=== PATIENT | male | born 1970 | race Caucasian/White ===

== ENCOUNTER 2018-08-14 05:24 | Observation (INO) ==
--- NOTE | 2018-08-05 15:00 | Anesthesiology Consultation ---
Date of Service August 05, 2018 Assessment & Plan (1) Encounter for pre-operative examination: Chart Review Chart Review: Acceptable Risk for Surgery and Patient seen in Pre Admission Testing Consults Requested none Teaching & Discussion Pre-Anesthesia Teaching/Discussion Notes: Instructed NPO after midnight before surgery, except medications with 15 cc of water. Medication instructions provided according to the PAT guidelines. History Surgery Operation Date: 08/14/18 07:15 Proposed Procedures p Bilateral Septoplasty, - Fatemeh Monroe MD s Endoscopic Sinus Surgery; - Fatemeh Monroe MD s Tonsillectomy - Fatemeh Monroe MD Height/Weight Height: 6 ft 2 in Weight: 92.8 kg Allergies Allergy/AdvReac Type Severity Reaction Status Date / Time No Known Allergies Allergy Unverified 07/30/18 15:23 Medications Home Medications Medication Instructions Recorded Confirmed Last Taken Allergy Shot 1 dose IM UD PRN 07/30/18 Unknown albuterol sulfate 1 puff INHALATION Q6H PRN 07/30/18 07/30/18 Unknown atorvastatin 40 mg PO QAM 07/30/18 07/30/18 Unknown budesonide-formoterol [Symbicort] 2 puff INHALATION BID 07/30/18 07/30/18 Unknown fluticasone [Flonase Allergy 1 spray INTRANASAL DAILY PRN 07/30/18 07/30/18 Unknown Relief] loratadine [Claritin] 10 mg PO DAILY PRN 07/30/18 07/30/18 Unknown omeprazole 40 mg PO QAM 07/30/18 07/30/18 Unknown tamsulosin 0.4 mg PO QAM 07/30/18 07/30/18 Unknown Past Medical History Medical History Asthma LOW GRADE--> ALLERGY AND ACTIVITY INDUCED. BPH (benign prostatic hyperplasia) Chronic back pain LUMBAR COMPRESSED VERTEBRAE GERD (gastroesophageal reflux disease) Hyperlipidemia Seasonal allergies Past Family History Family History Grandmother Family history of diabetes mellitus Past Surgical History Surgical History H/O thoracic outlet syndrome with rib removal History of appendectomy History of arthroscopy BILATERAL KNEE ARTHROSCOPY History of colonoscopy WITH POLYPECTOMY History of elbow surgery right elbow for bone spur History of endoscopic sinus surgery History of esophageal dilatation History of esophagogastroduodenoscopy (EGD) Past Anesthesia History No Hx of Anesthesia Complications and No Family Hx of Anesthesia Complications History of PONV Yes (After surgery for thoracic outlet syndrome.) Motion Sickness Screening History of Motion Sickness: No Social History Smoking Status: Never smoker Do You Dip or Chew Tobacco: No Hx Alcohol Use: Yes Alcohol type: beer alcohol intake frequency: a few times a month Hx Substance Use: No substance use type: does not use Exercise / Class Metabolic Activity 1 > 8 Run/Swim/Ski/Tennis (Normally runs 10-15 miles per week. Able to climb FOS. Denies CP or SOB (unless asthma acts up while running). ) Review of Systems Patient denies chest pain, shortness of breath, dyspnea on exertion, cough, palpitations. +joint pain (ankles) +acid reflux (controlled by medication and diet) +wheezing (rare due to asthma) Physical Exam Vital Signs BP: 125/76 P: 75 R: 14 T: 98.4 SPO2: 97% on RA ENMT Thyromental Distance: > or= 3.5 Finger Breadths (3.5) Mallampati Class: I Neck normal visual inspection and trachea midline; neck extension not limited Respiratory normal respiratory effort Auscultation: lungs clear to auscultation bilaterally Cardiovascular Rate/Rhythm: regular rate and regular rhythm Heart Sounds: no murmur Vessels: no carotid bruit Neurologic moves all extremities Psychiatric Orientation: alert and oriented x 3 Testing Stress Test Date: 11/05/17 Type: exercise Findings: + WNL The treadmill exercise test was normal. There was normal exercise HR and BP response without symptoms or EKG evidence of ischemia. He attained 91% MPHR and 11 MET workload. Good functional capacity. The stress EKG response was normal with upsloping ST segment depression noted at peak stress, normalizing by 1 minute in recovery. Laboratory Results 08/05/18 15:31
--- NOTE | 2018-08-05 15:02 | PAT Medication Instructions ---
Medication Instructions Date of Service August 05, 2018 Home Medications Allergy Shot 1 dose IM Q3-4 weeks albuterol sulfate 1 puff INHALATION Q6H NEEDED atorvastatin 40 mg PO QAM budesonide-formoterol [Symbicort] 2 puff INHALATION BID fluticasone [Flonase] 1 spray INTRANASAL DAILY NEEDED loratadine [Claritin] 10 mg PO DAILY NEEDED omeprazole 40 mg PO QAM tamsulosin 0.4 mg PO QAM Continue as directed Allergy Shot 1 dose IM Q3-4 weeks ASK your surgeon for instructions fluticasone [Flonase] 1 spray INTRANASAL DAILY NEEDED DO NOT take the morning of surgery loratadine [Claritin] 10 mg PO DAILY NEEDED Take morning of surgery With a small sip of water, OTHERWISE NOTHING TO EAT OR DRINK AFTER MIDNIGHT: albuterol sulfate 1 puff INHALATION Q6H NEEDED (bring to hospital) atorvastatin 40 mg PO QAM budesonide-formoterol [Symbicort] 2 puff INHALATION BID omeprazole 40 mg PO QAM tamsulosin 0.4 mg PO QAM Take evening before surgery albuterol sulfate 1 puff INHALATION Q6H NEEDED budesonide-formoterol [Symbicort] 2 puff INHALATION BID Other Notes If you have any questions please call us at [phone] or [phone] or [phone] or [phone]
[2018-08-05 15:40] LABS: Basophils # (auto) 0.03 K/uL (0-0.2); Basophils % (auto) 0.7 %; Eosinophils % (auto) 2.2 %; Hematocrit (blood only) 40.8 % (42-52); Hemoglobin 14.4 g/dL (14.0-18.0); Lymphocytes # (auto) 1.43 K/uL (1.2-3.4); Lymphocytes % (auto) 31.5 %; Mean Corpuscular Hgb Conc 35.3 g/dL (32-36); Mean Corpuscular Volume 84.6 fL (80-100); Mean Platelet Volume 10.4 fL (7.4-10.4); Monocytes % (auto) 8.8 %; Neutrophils # (auto) 2.58 K/uL (1.4-6.5); Neutrophils % (auto) 56.8 %; Platelet Count 215 K/uL (130-400); RDW Coefficient of Variation 13.1 % (11.5-14.5); RDW Standard Deviation 40.3 fL (36.4-46.3); Red Blood Count 4.82 M/uL (4.7-6.1); White Blood Count 4.54 K/uL (4.8-10.8)
--- NOTE | 2018-08-12 12:45 | History & Physical Report ---
Date of Service August 12, 2018 Assessment & Plan (1) Chronic sinusitis: endoscopic sinus surgery (2) Nasal septal deviation: septoplasty (3) Chronic tonsillitis and adenoiditis: tonsillectomy History of Present Illness Chief Complaint: sinusitis and tonsillitis Primary Care Provider: Adama Medina 47 yo with chronic sinusitis and tonsil stones/sore throat Allergies Allergy/AdvReac Type Severity Reaction Status Date / Time No Known Allergies Allergy Unverified 07/30/18 15:23 Home Medications Home Medications Medication Instructions Recorded Confirmed Type Allergy Shot 1 dose IM UD PRN 07/30/18 History albuterol sulfate 1 puff INHALATION Q6H PRN 07/30/18 07/30/18 History atorvastatin 40 mg PO QAM 07/30/18 07/30/18 History budesonide-formoterol [Symbicort] 2 puff INHALATION BID 07/30/18 07/30/18 History fluticasone [Flonase Allergy 1 spray INTRANASAL DAILY PRN 07/30/18 07/30/18 History Relief] loratadine [Claritin] 10 mg PO DAILY PRN 07/30/18 07/30/18 History omeprazole 40 mg PO QAM 07/30/18 07/30/18 History tamsulosin 0.4 mg PO QAM 07/30/18 07/30/18 History Past Med/Surg History Medical History Asthma LOW GRADE--> ALLERGY AND ACTIVITY INDUCED. BPH (benign prostatic hyperplasia) Chronic back pain LUMBAR COMPRESSED VERTEBRAE GERD (gastroesophageal reflux disease) Hyperlipidemia Seasonal allergies Surgical History H/O thoracic outlet syndrome with rib removal History of appendectomy History of arthroscopy BILATERAL KNEE ARTHROSCOPY History of colonoscopy WITH POLYPECTOMY History of elbow surgery right elbow for bone spur History of endoscopic sinus surgery History of esophageal dilatation History of esophagogastroduodenoscopy (EGD) Family History Grandmother Family history of diabetes mellitus Social History Preferred Language: Kazakh Communication Ability: Effective 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 Beliefs That Will Affect Care: None Current Living Situation: Spouse and Family Other Information That Helps Us Care for You: No Feels Safe at Home: Yes Safety Concerns: Feels Safe At This Time Smoking Status: Never smoker Hx Alcohol Use: Yes Hx Substance Use: No Physical Exam Constitutional: WD/WN, vitals as above Eyes: PERRL, conjunctivae normal, anicteric sclerae ENMT: Nose: + nasal mucous membrane abnormality (adhesions and scar from previous FESS) and + septum abnormality (deviated high) Mouth: + oropharynx abnormality (tonsil stones in crypts) Neck: trachea midline, no thyromegaly Respiratory: normal respiratory effort, lungs clear to auscultation Cardiovascular: RRR, no murmur, no edema
[2018-08-14] MEDS ORDERED: LR 15ML/HR IV SCH (06:00)
[2018-08-14] MEDS ORDERED: CEFAZOLIN 2000MG 2,000 MG/15 ML SYR IV SCH (06:00)
[2018-08-14] MEDS ORDERED: DEXAMETHASONE SOD INJ 4 MG/ML VIAL ONE (06:58)
[2018-08-14] MEDS ORDERED: fentaNYL citrate 100 MCG/2 ML VIAL ONE ×2 (06:58)
[2018-08-14] MEDS ORDERED: ONDANSETRON INJ 2 MG/ML 2 ML VIAL ONE (06:58)
[2018-08-14] MEDS ORDERED: NEOSTIGMINE METHYLSULFATE 5 MG/5 ML SYR ONE (06:58)
[2018-08-14] MEDS ORDERED: LIDOCAINE HCL 2% 2 ML VIAL/AMP(20MG/ML) INFIL ONE (06:58)
[2018-08-14] MEDS ORDERED: PROPOFOL IV EMULSION 10 MG/ML 20 ML VIAL IV ONE (06:58)
[2018-08-14] MEDS ORDERED: GLYCOPYRROLATE 0.2 MG/ML VIAL ONE (06:58)
[2018-08-14] MEDS ORDERED: MIDAZOLAM HCL 1 MG/ML 2ML VIAL ONE (06:59)
[2018-08-14] MEDS ORDERED: HYDROmorphone INJ 2 MG/ML SYR/VIAL IV PRN (07:03)
[2018-08-14] MEDS ORDERED: ONDANSETRON INJ 2 MG/ML 2 ML VIAL IV PRN ×2 (07:03→10:08)
[2018-08-14] MEDS ORDERED: ALBUTEROL 0.083% NEBU SOLN 3 ML VIAL INH PRN (07:03)
[2018-08-14] MEDS ORDERED: ePHEDrine sulfate 50 MG/ML AMP IV PRN (07:03)
[2018-08-14] MEDS ORDERED: PROMETHAZINE HCL 12.5 MG in SODIUM CHLORIDE 0.9% 50 ML IV PRN (07:03)
[2018-08-14] MEDS ORDERED: ATROPINE SULFATE 0.1 MG/ML 10ML SYR IV PRN (07:03)
--- NOTE | 2018-08-14 07:03 | History & Physical Bridge Note ---
Date of Service August 14, 2018 History & Physical Bridge Note I have examined the patient, reviewed the History & Physical and in the interval since the performance of the History & Physical I have noted the following changes of clinical significance: no changes noted
[2018-08-14] MEDS ORDERED: EPINEPHrine INJ 1 MG/ML AMP ONE (07:15)
[2018-08-14] MEDS ORDERED: BACITRACIN OINT 15 GM TUBE ONE (07:15)
[2018-08-14] MEDS ORDERED: GELATIN SPONGE 12-7MM ONE (07:16)
[2018-08-14] MEDS ORDERED: LIDOCAINE 4% INH SOLN 4 ML BTL ONE (07:16)
[2018-08-14] MEDS ORDERED: LIDOCAINE/EPINE 2% 1:100,000 20ML ONE (07:16)
[2018-08-14] MEDS ORDERED: TRIAMCINOLONE ACET 40 MG/ML VIAL ONE (07:16)
[2018-08-14] MEDS ORDERED: BUPIVACAINE/EPINEPHRINE 0.5% MPF 1:200,000 30 ML VIAL ONE (07:18)
[2018-08-14] MEDS ORDERED: MUPIROCIN 2% OINT 22 GM TUBE ONE (07:22)
[2018-08-14] MEDS ORDERED: EpINEphrine HCL INJ 1 MG/ML 1ML SYRINGE ONE (07:23)
[2018-08-14] MEDS ORDERED: ROCURONIUM BROMIDE 10 MG/ML 5 ML VIAL ONE ×2 (09:36)
[2018-08-14] MEDS ORDERED: OXYMETAZOLINE 0.05% 30 ML BTL PRN (10:08)
[2018-08-14] MEDS ORDERED: SODIUM CHLORIDE 0.65% NA SOLN 45 ML (OCEAN) PRN (10:08)
--- NOTE | 2018-08-14 10:20 | Operative Report ---
Post Operative Report Pre & Post Diagnosis Operation Date: 08/14/18 07:15 Pre-Op Diagnosis: Chronic Sinusitis and Tonsillitis Post-Op Diagnosis: Chronic Sinusitis and Tonsillitis Procedure Operation Date: 08/14/18 07:15 Actual Procedures p Septoplasty,(Not Applicable) - Fatemeh Monroe MD s Bilateral Endoscopic Sinus Surgery with right and left frontal, right and left sphenoid, right and left total ethmoid, and right and left maxillary sinus antrostomies;(Bilateral) - Fatemeh Monroe MD s Bilateral Tonsillectomy(Bilateral) - Fatemeh Monroe MD Surgeon Fatemeh Monroe MD Hydrogeology Professor None Estimated Blood Loss 100 Findings Consistent with Post-Op Diagnosis Specimens Right and left tonsil Anesthesia Type General Complications none Disposition Accompanied Patient To Recovery: Yes Disposition: Recovery Room Indications 47-year-old with chronic tonsillitis and chronic sinusitis Description of Procedure He was brought to the operating room placed supine position. General endotracheal anesthesia was induced the was prepped and draped in the usual sterile manner. Field Agent device was calibrated and used for the entire procedure. The nose was decongested using cottonoids with a topical solution of 4 cc of 4% Xylocaine mixed with 1 cc of epinephrine. The left nasofrontal duct was cannulated with a guidewire with BrainLab computer guidance and dilated using the 6 mm balloon. The guidewire was left in place as a marker as the catheter was withdrawn. Frontal sinusotomy was performed by using the shaver couple with the BrainLab device removing the anterior wall and then the posterio r wall of the Agger nasi cell leaving the mucosa they are intact. At this point total ethmoidectomy was performed going through multiple adhesions and severe amount of osteitis to exonerate all the posterior and all the anterior ethmoid air cells, delineating the posterior most ethmoid air cell, delineating the skull base and lamina papyracea, and following the structures anteriorly to exonerate all the posterior and all the anterior ethmoid air cells. 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 Sphenoid was opened by first dilating it with the 6 mm balloon and then opening up the sphenoid ostia by removing polypoid tissue anterior inferiorly at the inferior border of the superior turbinate. The frontal sinus was redilated and then a contour stent was placed in the nasofrontal duct and a propel stent was placed in the middle meatus. The right frontal sinusotomy sphenoidotomy total ethmoidectomy and maxillary sinus antrostomy was performed in a similar manner. The left hemitransfixion incision was made and mucoperichondrium was elevated off the left side of the septum. Cartilage was inferiorly from the vomer maxillary crest and posteriorly from the perpendicular plate of the ethm oid. A large bony cartilaginous spur projecting to the right inferiorly was removed using the caudal dissector, the Alonso-Curtis rongeurs, and the Maximino forceps and the caudal dissector. A strip of cartilage was removed from inferiorly to allow the septum to return to the midline. The band at the caudal end of the septum was also straightened using the cartilage carving technique. The septum was closed using a 10 continuous mattress suture of 4-0 plain gut. The mouthgag was placed in the peritonsillar area were injected with 0.5% Sensorcaine with 1-200,000 strength epinephrine. Tonsillectomies were performed using the Coblation device from the superior pole to the inferior pole removing both tonsils. Hemostasis was controlled using the Coblation device. The pharynx was suctioned clean. He tolerated the procedure well and was taken to the recovery area in satisfactory condition. I attest to the content of the Intraoperative Record and any orders documented therein. Any exceptions are noted below.
[2018-08-14] MEDS: fentaNYL citrate 100 MCG/2 ML VIAL IV PRN ×2 (10:41→10:46)
[2018-08-14] MEDS: D5W AND 1/2NSS + 20MEQ KCL 20 MEQ/1,000 ML BAG IV SCH ×2 (12:00→22:14)
[2018-08-14] MEDS: MoRPHine SULFATE 4 MG/ML 1 ML CARP\\VIAL IV PRN ×5 (12:02→23:34)
--- NOTE | 2018-08-14 12:09 | Anesthesiology Progress Note ---
Date of Service August 14, 2018 Anesthesia Post Procedure Vital Signs Vital Signs: Temp Pulse Pulse Pulse Resp BP BP 08/14/18 11:49 36.4 C L 18 141/76 H 08/14/18 11:15 36.6 C 81 16 137/79 08/14/18 11:05 36.6 C 77 18 138/72 08/14/18 10:55 68 18 133/79 08/14/18 10:45 68 18 122/78 08/14/18 10:35 65 18 122/80 08/14/18 10:27 36.8 C 92 H 18 139/87 08/14/18 05:47 36.6 C 18 L 18 129/89 Pulse Ox 08/14/18 11:49 99 08/14/18 11:15 95 08/14/18 11:05 99 08/14/18 10:55 99 08/14/18 10:45 97 08/14/18 10:35 99 08/14/18 10:27 99 08/14/18 05:47 96 Pain Intensity Throat: Pain Intensity: 4 Notes Mental Status: alert / awake / arousable and participated in evaluation Patient Amnestic to Procedure: Yes Nausea / Vomiting: adequately controlled Pain: adequately controlled Airway Patency, RR, SpO2: stable & adequate BP & HR: stable & adequate Hydration State: stable & adequate Anesthetic Complications: no major complications apparent and Pt Satisfied with anesthetic care
[2018-08-14] MEDS ORDERED: FLUMAZENIL 0.1 MG/1 ML 10 ML VIAL ONE (13:56)
[2018-08-15] MEDS: MoRPHine SULFATE 4 MG/ML 1 ML CARP\\VIAL IV PRN ×2 (04:01→07:36)
--- NOTE | 2018-08-15 07:07 | Discharge Summary ---
Date of Service August 15, 2018 Admission HPI Per Admitting Provider 47 yo with chronic sinusitis and tonsil stones/sore throat Admission Exam (Per Admitting) Constitutional WD/WN, vitals as above Eyes PERRL, conjunctivae normal, anicteric sclerae ENMT Nose: + nasal mucous membrane abnormality (adhesions and scar from previous FESS) and + septum abnormality (deviated high) Mouth: + oropharynx abnormality (tonsil stones in crypts) Neck trachea midline, no thyromegaly Respiratory normal respiratory effort, lungs clear to auscultation Cardiovascular RRR, no murmur, no edema Discharge Data Procedures Performed Operation Date: 08/14/18 07:15 Actual Procedures p Septoplasty,(Not Applicable) - Fatemeh Monroe MD s Bilateral Endoscopic Sinus Surgery;(Bilateral) - Fatemeh Monroe MD s Bilateral Tonsillectomy(Bilateral) - Fatemeh Monroe MD no complications other than straight cath x 1 Hospital Course (1) Chronic sinusitis: endoscopic sinus surgery (2) Nasal septal deviation: septoplasty (3) Chronic tonsillitis and adenoiditis: tonsillectomy Discharge Instructions see discharge instructions
[2018-08-15] MEDS: D5W AND 1/2NSS + 20MEQ KCL 20 MEQ/1,000 ML BAG IV SCH ×2 (07:36→17:48)
--- NOTE | 2018-08-15 09:44 | Progress Note ---
DATE: 08/15/2018 SUBJECTIVE: He continues to have urinary retention, is unable to urinate. He is postop day 1. PHYSICAL EXAMINATION: NOSE: Examination showed the nasal passages to be patent with some crusting of blood. THROAT: Shows empty tonsillar fossa with wide eschar in place with no active bleeding. IMPRESSION: Urinary retention. PLAN: Plan is for Rodriguez catheter and consult urology, and keep the patient in for another day.
--- NOTE | 2018-08-15 12:52 | Urology Consultation ---
Date of Consultation August 15, 2018 Assessment & Plan (1) Urinary retention: Would leave Rodriguez catheter drainage for at least a week before doing a voiding trial as he did have acute distention of his bladder Will increase his Flomax to twice a day he was warned about the possibility of dizziness Follow-up in our office in 7-10 days for a voiding trial History of Present Illness Attending Physician: Fatemeh Monroe MD History of Present Illness Patient is a 47-year-old white male who is post sinus surgery. He was unable to void postop and required a Rodriguez catheter placement. He tells me he has had troubles voiding prior to the surgery. He had been on Flomax 1 tablet daily started about 2 or 3 weeks ago he did not think that it made much difference. Voiding habits: Nocturia 2-3 Stream weak Denies dysuria or hematuria Occasional hesitancy Does not feel like he empties completely Daytime frequency every 2 hours Denies urgency Symptoms are bothersome Allergies Allergy/AdvReac Type Severity Reaction Status Date / Time No Known Allergies Allergy Unverified 08/14/18 05:39 Home Medications Home Medications Medication Instructions Recorded Confirmed Type Allergy Shot 1 dose IM UD PRN 07/30/18 08/14/18 History albuterol sulfate 1 puff INHALATION Q6H PRN 07/30/18 08/14/18 History atorvastatin 40 mg PO QAM 07/30/18 08/14/18 History budesonide-formoterol [Symbicort] 2 puff INHALATION BID 07/30/18 08/14/18 History fluticasone [Flonase Allergy 1 spray INTRANASAL DAILY PRN 07/30/18 08/14/18 History Relief] loratadine [Claritin] 10 mg PO DAILY PRN 07/30/18 08/14/18 History omeprazole 40 mg PO QAM 07/30/18 08/14/18 History tamsulosin 0.4 mg PO QAM 07/30/18 08/14/18 History hydrocodone-acetaminophen 7.5 mg PO Q4H PRN #500 ml 08/14/18 Rx Patient History Medical History Asthma LOW GRADE--> ALLERGY AND ACTIVITY INDUCED. BPH (benign prostatic hyperplasia) Chronic back pain LUMBAR COMPRESSED VERTEBRAE GERD (gastroesophageal reflux disease) Hyperlipidemia Seasonal allergies Surgical History H/O thoracic outlet syndrome with rib removal History of appendectomy History of arthroscopy BILATERAL KNEE ARTHROSCOPY History of colonoscopy WITH POLYPECTOMY History of elbow surgery right elbow for bone spur History of endoscopic sinus surgery History of esophageal dilatation History of esophagogastroduodenoscopy (EGD) Family History Grandmother Family history of diabetes mellitus Social History Preferred Language: Armenian Communication Ability: Effective Data Processing Control Clerk Required: No Beliefs That Will Affect Care: None Current Living Situation: Spouse and Family Other Information That Helps Us Care for You: No Feels Safe at Home: Yes Safety Concerns: Feels Safe At This Time Smoking Status: Never smoker Hx Alcohol Use: Yes Hx Substance Use: No Review of Systems Review of systems evaluated from his admitting history and physical Physical Exam Vital Signs (Past 24 Hours): Last Vital Signs Temp 36.4 C L 08/15/18 11:09 Pulse 59 L 08/15/18 11:09 Resp 18 08/15/18 11:09 BP 143/89 H 08/15/18 11:09 Pulse Ox 98 08/15/18 11:09 Physical Exam: Well-developed well-nourished white male in no acute distress Neurological he is alert and oriented x3 Abdomen is benign phallus shows a normal male without lesion Meatus normal size and position patient has a Rodriguez catheter testicles-normal size no masses or tenderness Scrotum appears normal Rectal exam prostate is about 35 g non-nodular
[2018-08-15] MEDS: TAMSULOSIN HCL 0.4 MG CAP PO SCH ×2 (13:28→20:24)
[2018-08-15] MEDS: ACETAMINOPHEN/HYDROCODONE ELIX 15 ML/CUP UDP PO PRN ×2 (13:28→18:43)
[2018-08-16] MEDS: ACETAMINOPHEN/HYDROCODONE ELIX 15 ML/CUP UDP PO PRN ×4 (00:38→13:00)
[2018-08-16] MEDS: D5W AND 1/2NSS + 20MEQ KCL 20 MEQ/1,000 ML BAG IV SCH (04:22)
[2018-08-16] MEDS: MoRPHine SULFATE 4 MG/ML 1 ML CARP\\VIAL IV PRN (07:06)
[2018-08-16] MEDS: TAMSULOSIN HCL 0.4 MG CAP PO SCH (08:51)
--- NOTE | 2018-08-16 11:43 | Urology Progress Note ---
Date of Service August 16, 2018 Subjective Patient's afebrile vital signs are stable His Rodriguez catheter was removed yesterday. He says he has been voiding okay Not sure that he empties completely but feels like he is back to his baseline Since he is voiding okay now recommend follow-up as an outpatient for further evaluation Continue Flomax from his primary care physician Physical Exam Vital Signs (Past 24 Hours): Last Vital Signs Temp 36.6 C 08/16/18 07:01 Pulse 57 L 08/16/18 07:01 Resp 19 08/16/18 07:01 BP 133/86 08/16/18 07:01 Pulse Ox 96 08/16/18 07:01
== END 2018-08-16 13:44 | disposition home or self-care (01) ==
LOC: 3N 05:24 → ASU 05:24